=== PATIENT | male | born 1980 | race Caucasian/White ===

== ENCOUNTER 2019-12-08 01:49 | Emergency (ER) | payer SELFPAY ==
[~2019-12-08] VITALS: Ht 177.8 cm; Wt 127.5 kg
[2019-12-08 01:54] VITALS: BP 145/83
[2019-12-08] MEDS ORDERED: CLINDAMYCIN 600 MG/4 ML VIAL IM ONE (02:20)
[2019-12-08 02:40] VITALS: BP 145/83
== END 2019-12-08 02:40 | disposition home or self-care (01) ==
LOC: MED 01:49
DX: K04.7 Periapical abscess without sinus (principal); Z90.49 Acquired absence of other specified parts of digestive tract
CPT/HCPCS: 96372; 99283; J3490